=== PATIENT | female | born 1950 | race Caucasian/White ===

== ENCOUNTER → 2018-04-23 | Outpatient (CLI) | payer MEDICARE ==
--- NOTE | 2018-04-29 09:47 | MM ---
Reason for exam: screening (asymptomatic). Last mammogram was performed 1 year ago. History: Patient is postmenopausal and has history of other cancer at age 46. Benign excisional biopsy of the right breast, March 27, 1998. Benign excisional biopsy of the right breast, 1990. Physical Findings: A clinical breast exam by your physician is recommended on an annual basis and results should be correlated with mammographic findings. MG 3D Screening Mammo W/Cad Bilateral CC and MLO view(s) were taken. Prior study comparison: April 16, 2017, bilateral MG 3d screening mammo w/cad. April 15, 2016, bilateral MG 3d screening mammo w/cad. The breast tissue is heterogeneously dense. This may lower the sensitivity of mammography. There are benign appearing round dystrophic calcifications bilaterally. There is no discrete abnormality. ASSESSMENT: Benign, BI-RAD 2 RECOMMENDATION: Routine screening mammogram of both breasts in 1 year.
== END ==
LOC: RADMAMWWP 14:52
PROVIDERS: ATTEND Internal Medicine Geriatric Medicine
DX: Z12.31 Encounter for screening mammogram for malignant neoplasm of breast (principal)
CPT/HCPCS: 77063; 77067

== ENCOUNTER → 2019-06-07 | Outpatient (CLI) | payer MEDICARE ==
--- NOTE | 2019-06-08 11:55 | MM ---
Reason for exam: screening (asymptomatic). Last mammogram was performed 1 year and 1 month ago. History: Patient is postmenopausal and has history of other cancer at age 46. Benign excisional biopsy of the right breast, March 27, 1998. Benign excisional biopsy of the right breast, 1990. Took hormonal contraceptives for 5 years. Physical Findings: A clinical breast exam by your physician is recommended on an annual basis and results should be correlated with mammographic findings. MG 3D Screening Mammo W/Cad Bilateral CC and MLO view(s) were taken. Prior study comparison: April 23, 2018, bilateral MG 3d screening mammo w/cad. April 16, 2017, bilateral MG 3d screening mammo w/cad. There is an increasing group of 4mm right lower inner quadrant calcifications at posterior depth. No suspicious abnormality in the left breast. ASSESSMENT: Incomplete: need additional imaging evaluation, BI-RAD 0 RECOMMENDATION: Special view mammogram of the left breast. [facility] will attempt to contact patient to return for supplemental views.
== END | disposition home or self-care (01) ==
LOC: RADMAMWWP 09:00
PROVIDERS: ATTEND Internal Medicine Geriatric Medicine
DX: Z12.31 Encounter for screening mammogram for malignant neoplasm of breast (principal)
CPT/HCPCS: 77063; 77067

== ENCOUNTER → 2019-06-07 | Outpatient (CLI) | payer MEDICARE ==
--- NOTE | 2019-06-07 17:20 | BD ---
EXAMINATION TYPE: Axial Bone Density DATE OF EXAM: 06/07/2019 COMPARISON: NONE CLINICAL HISTORY: 69-year-old female age-related osteoporosis Height: 61 IN Weight: 159 LBS RISK FACTORS HISTORY OF: Active: YES Postmenopausal woman: AGE 52 Take estrogen and/or progesterone medications: NOT NOW How lon YEARS CONTROL MEDICATIONS: Additional Medications: CALCIUM, VIT D, PRILOSEC, SIMVASTATIN, STATIN, BIOTIN, EXAM MEASUREMENTS: Bone mineral densitometry was performed using the Vendscreen System. Bone mineral density as measured about the Lumbar spine is: ----- L1-L4(G/cm2): 1.171 T Score Values are as follows: ----- L2: -1.0 ----- L3: 0.3 ----- L4: 0.6 ----- L1-L4: -0.1 Bone mineral density has: BASELINE Bone mineral density about the R hip (g/cm2): 0.902 Bone mineral density about the L hip (g/cm2): 0.873 T Score values are as follows: -----R Neck: -1.0 -----L Neck: -1.2 -----R Total: -0.6 -----L Total: -0.2 Bone mineral density BASELINE IMPRESSION: Osteopenia (T Score between -2.5 and -1). There is slightly increased risk of fracture and the patient may be considered for treatment. Re-Screen 2-5 years. NOTE: T-SCORE=SD OF THE YOUNG ADULT MEAN.
== END | disposition home or self-care (01) ==
LOC: RADBDWWP 09:03
PROVIDERS: ATTEND Internal Medicine Geriatric Medicine
DX: M85.80 Other specified disorders of bone density and structure, unspecified site (principal); Z78.0 Asymptomatic menopausal state
CPT/HCPCS: 77080

== ENCOUNTER → 2019-06-10 | Outpatient (CLI) | payer MEDICARE ==
--- NOTE | 2019-06-10 12:32 | MM ---
Reason for exam: additional evaluation requested from abnormal screening. Last mammogram was performed less than 1 month ago. History: Patient is postmenopausal and has history of other cancer at age 46. Benign excisional biopsy of the right breast, March 27, 1998. Benign excisional biopsy of the right breast, 1990. Took hormonal contraceptives for 5 years. Physical Findings: Nurse did not find any significant physical abnormalities on exam. MG 3D Work Up W/Cad RT CC with magnification, LM with magnification, and LM view(s) were taken of the right breast. Prior study comparison: June 07, 2019, bilateral MG 3d screening mammo w/cad. April 23, 2018, bilateral MG 3d screening mammo w/cad. Finding: There are coarse, grouped/clustered calcifications in the right breast. New finding since April 23, 2018. These results were verbally communicated with the patient and result sheet given to the patient on 06/10/19. ASSESSMENT: Suspicious, BI-RAD 4 RECOMMENDATION: Stereotactic core biopsy of the right breast. Called Dr. Tan's office with mammographic findings and has scheduled an appointment for the patient for 06/22/19 at 1:[address] Kwok. Biopsy scheduled for 06/16/19 at 2:20. PRELIMINARY REPORT CALLED AND FAXED TO DR. KWOK ON 06/10/19.
== END | disposition home or self-care (01) ==
LOC: RADMAMWWP 07:22
PROVIDERS: ATTEND Internal Medicine Geriatric Medicine
DX: R92.8 Other abnormal and inconclusive findings on diagnostic imaging of breast (principal)
CPT/HCPCS: 77065; G0279; 77061

== ENCOUNTER → 2019-06-16 | Day surgery (SDC) | payer MEDICARE ==
[2019-06-16 13:37] VITALS: BP 168/90; PULSE 82; RESP 18; TEMP 97.7
--- NOTE | 2019-06-16 15:43 | MM ---
EXAMINATION TYPE: MG stereo VAD BX RT DATE OF EXAM: 06/16/2019 COMPARISON: Diagnostic right mammogram dated 06/10/2019 CLINICAL HISTORY: Abnormal mammogram. 4 mm group of indeterminate right lower inner quadrant calcifications for which stereotactic guided biopsy was recommended. TECHNIQUE: Stereotactic guided core biopsy of right breast. FINDINGS: The procedure of stereotactic guided core biopsy was explained to the patient. Benefits, alternatives, and risks were discussed. An informed consent was then obtained. Preprocedural timeout was performed. The shortness pathway for biopsy was chosen. Shortness pathway was CC from below approach. Preprocedural localization images were obtained and a 4 mm group of calcifications in the right lower inner quadrant was demonstrated. Coordinates were calculated. Subsequently 10 cc of lidocaine without epinephrine was utilized to anesthetize the skin and deeper subcutaneous soft tissues. The needle was advanced to the appropriate depth. Prefire images were obtained ensuring appropriate location. Postfire injection of 10 cc of lidocaine with epinephrine was utilized to anesthetize the site of biopsy. A vacuum assisted biopsy gun was used to obtain 9 core samples. The patient tolerated the procedure well without any immediate complication. The patient was kept in the radiology department for short stay after the procedure and then discharged home in stable condition. Targeted calcifications are identified in specimen mammogram. Post biopsy mammogram shows the biopsy marker to appear in satisfactory position relative to the targeted area of concern on the preprocedure images without migration. IMPRESSION: SUCCESSFUL, UNCOMPLICATED STEREOTACTIC GUIDED CORE BIOPSY OF A NEW INTERMEDIATE SUSPICION A 4 MM GROUP OF CALCULATIONS WITHIN THE LOWER INNER QUADRANT OF THE RIGHT BREAST, FULL PATHOLOGY RESULTS TO FOLLOW. Pathology Results: Benign RIGHT BREAST, NEEDLE CORE BIOPSIES: Proliferative breast lesions without atypia including microscopic intraductal papilloma, usual duct hyperplasia and fibroadenomatoid hyperplasia. Recommendation Follow up mammogram of the right breast in 6 months. MTDD
== END ==
LOC: RADMAMWWP 13:18
PROVIDERS: ATTEND Student in an Organized Health Care Education/Training Program
DX: D24.1 Benign neoplasm of right breast (principal)
CPT/HCPCS: 88305; 19081; J2001

== ENCOUNTER → 2019-10-04 | Outpatient (CLI) | payer MEDICARE | END | disposition home or self-care (01) | LOC: LABWHC1 10:11 | PROVIDERS: ATTEND Student in an Organized Health Care Education/Training Program | DX: Z11.59 Encounter for screening for other viral diseases (principal) ==

== ENCOUNTER 2019-10-06 09:50 | Day surgery (SDC) | payer MEDICARE ==
[2019-10-05 10:52] VITALS: BMI 28.3
[~2019-10-06 09:50] MED LIST: ALPRAZolam 0.25 MG TAB PO PRN; DEXAMETHASONE SOD PHOSPHATE 10 MG/ML 1 ML VIAL IV ONE; HYDROmorphone 0.5 MG/0.5 ML SYRINGE IVP PRN; LACTATED RINGERS 1,000 ML IV SCH; ONDANSETRON 4 MG/2 ML VIAL IVP ONE; Pre Op ABX Message 1 EACH MISC MISCELLANE ONE
[2019-10-06 10:24] VITALS: RESP 16
[2019-10-06] MEDS ORDERED: LIDOCAINE 1% (10MG/ML) FOR IV START INTRADERMA ONE (10:48)
[2019-10-06 11:16] VITALS: TEMP 97.9
[2019-10-06] MEDS ORDERED: LIDOCAINE 1% INJ 10MG/ML (20 ML MDV) SQ ONE (11:24)
[2019-10-06] MEDS ORDERED: PROPOFOL 10 MG/ML 20 ML VIAL IV ONE (12:15)
[2019-10-06] MEDS ORDERED: KETOROLAC 30 MG/ML 1 ML VIAL ONE (12:15)
[2019-10-06] MEDS ORDERED: HYDROmorphone (PF) 1 MG/ML ONE (12:15)
[2019-10-06] MEDS ORDERED: LIDOCAINE 1% INJ 10MG/ML (20 ML MDV) ONE (12:15)
[2019-10-06] MEDS ORDERED: MIDAZOLAM 2 MG/2 ML VIAL ONE (12:15)
[2019-10-06] MEDS ORDERED: fentaNYL (PF) 50 MCG/ML 2 ML AMP ONE (12:15)
[2019-10-06] MEDS ORDERED: LIDOCAINE 1%-EPI 1:100,000 20 ML VIAL SQ ONE ×2 (12:19)
[2019-10-06] MEDS ORDERED: ceFAZolin 1,000 MG VIAL IVPB ONE (12:34)
--- NOTE | 2019-10-06 13:31 | MM ---
EXAMINATION TYPE: MG pre op needle loc RT, MG surgical specimen RT DATE OF EXAM: 10/06/2019 COMPARISON: Stereotactic guided biopsy of the right breast dated 06/16/2019 CLINICAL HISTORY: Mammographic guided needle localization request for intraductal papilloma after stereotactic guided biopsy. TECHNIQUE: Needle localization with wire placement and surgical excision of area of concern in the right breast. FINDINGS: The procedure of needle localization with wire placement and than surgical excision was explained to the patient. Benefits, alternatives, and risks were discussed. An informed consent was then obtained. Preprocedural timeout was performed. The shortest pathway for procedure was chosen. Shortest pathway was medial to lateral approach. The overlying skin was prepped and draped in usual sterile fashion. 10 cc of 1% lidocaine was used as anesthetic into the skin and subcutaneous tissue up to the level of area of concern. A 7 cm needle was used. It was placed via a medial to lateral approach under mammographic guidance. Subsequent 90 degrees mammogram show the needle to be in satisfactory position relative to the targeted area. At this point, wire was placed and the needle was withdrawn. The wire was fixed to patient's skin. Images were marked for surgeon. The patient tolerated the procedure well without any immediate complication. The patient was kept in the radiology department for short stay after the procedure and then taken to surgery for surgical excision. Targeted biopsy marker and wire are identified in specimen mammogram. Findings relayed to the OR by the informatics application analyst at 1313 p.m. on 10/06/2019. The patient was kept in hospital for short stay after the procedure and then discharged home in stable condition. IMPRESSION: Successful, uncomplicated needle localization with wire placement and surgical excision of a targeted biopsy marker denoting the biopsy-proven intraductal papilloma in the right breast, full pathology results to follow. Pathology Results: Benign RIGHT BREAST, NEEDLE LOCALIZATION EXCISION: Benign breast with fibrocystic changes including moderate usual type ductal hyperplasia, sclerosing adenosis, fibrosis, and cysts. Previous biopsy site. Recommendation Surgical consult of the right breast. Continued follow up microscopic incidental papilloma likely entirely excised on biopsy. [facility]
--- NOTE | 2019-10-06 14:10 | P.OP ---
Date of Procedure: 10/06/19 Preoperative Diagnosis: Intraductal papiloma Postoperative Diagnosis: same Procedure(s) Performed: Needle localized excisional biopsy right breast Anesthesia: NAE Surgeon: Tio Isbell Estimated Blood Loss (ml): 10 Condition: stable Description of Procedure: Patient is brought operative suite remained in the supine position when general endotracheal anesthesia per Department of anesthesia she was prepped and draped usual sterile fashion. She previously had had needle localization performed by the radiology department. An incision was made directly over the wire in the right breast. 3 cm long. This was carried down and skin flaps were formed. The entire wire and clip were excised and sent to mammography. This is done with Bovie electrocautery and hemostasis was achieved. The image confirmed that clip and wire were intact and in the specimen with adequate margins. The wound was irrigated and hemostasis was once again achieved all sponge and needle counts were correct the wound was then closed with 3-0 subdermal Vicryl followed by 4-0 running subcuticular Monocryl suture. Steri-Strips were applied sterile dressing was applied patient tolerated procedure well no apparent complications Plan - Discharge Summary Discharge Rx Participant: No New Discharge Prescriptions: No Action Simvastatin [Zocor] 40 mg PO HS Ezetimibe [Zetia] 10 mg PO DAILY Omeprazole [PriLOSEC] 10 mg PO DAILY Calcium Carbonate [Calcium] 600 mg PO DAILY Multivitamins, Thera [Multivitamin (formulary)] 1 tab PO DAILY Biotin 10,000 mcg PO DAILY Discharge Medication List Ezetimibe [Zetia] 10 mg PO DAILY 09/01/13 [History] Simvastatin [Zocor] 40 mg PO HS 09/01/13 [History] Calcium Carbonate [Calcium] 600 mg PO DAILY 06/14/19 [History] Multivitamins, Thera [Multivitamin (formulary)] 1 tab PO DAILY 06/14/19 [History] Omeprazole [PriLOSEC] 10 mg PO DAILY 06/14/19 [History] Biotin 10,000 mcg PO DAILY 06/16/19 [History]
[2019-10-06 15:26] VITALS: BP 147/61; PULSE 57
== END 2019-10-06 15:45 | disposition home or self-care (01) ==
LOC: OR 09:50
PROVIDERS: ATTEND Student in an Organized Health Care Education/Training Program
DX: N60.21 Fibroadenosis of right breast (principal); N60.31 Fibrosclerosis of right breast; E78.5 Hyperlipidemia, unspecified; K21.9 Gastro-esophageal reflux disease without esophagitis; Z79.899 Other long term (current) drug therapy; Z98.890 Other specified postprocedural states; Z85.828 Personal history of other malignant neoplasm of skin; Z78.0 Asymptomatic menopausal state; Z80.7 Family history of other malignant neoplasms of lymphoid, hematopoietic and related tissues; Z82.5 Family history of asthma and other chronic lower respiratory diseases; Z84.1 Family history of disorders of kidney and ureter
CPT/HCPCS: 88307; 76098; 19281; 19125; J2250; J1100; J2405; J0690; J2001; J3010; J1885; J1170 ×2; J2704

== ENCOUNTER → 2020-07-04 | Outpatient (CLI) | payer MEDICARE ==
[2020-07-04 13:52] LABS: ALT 30 U/L (4-34); AST 26 U/L (14-36); African American GFR (CKD) >90 (>60 ml/min/1.73 sqM); Albumin 4.1 g/dL (3.5-5.0); Alkaline Phosphatase 51 U/L (38-126); Anion Gap 7 mmol/L; Blood Urea Nitrogen 20 mg/dL (7-17); Calcium 9.6 mg/dL (8.4-10.2); Carbon Dioxide 29 mmol/L (22-30); Chloride 102 mmol/L (98-107); Creatine Kinase 48 U/L (30-135); Glucose 104 mg/dL (74-99); Non-African American GFR(CKD) >90 (>60 ml/min/1.73 sqM); Potassium 4.3 mmol/L (3.5-5.1); Sodium 138 mmol/L (137-145); Total Bilirubin 0.4 mg/dL (0.2-1.3); Total Protein 6.6 g/dL (6.3-8.2)
[2020-07-04 14:03] LABS: T4, Free (Free Thyroxine) 0.88 ng/dL (0.78-2.19)
[2020-07-04 15:17] LABS: Cholesterol 222 mg/dL (<200); HDL Cholesterol 82 mg/dL (40-60); LDL Cholesterol,Calculated 131 mg/dL (0-99); Triglycerides 46 mg/dL (<150)
[2020-07-05 00:32] LABS: Hemoglobin A1C 5.7 % (4.0-6.0)
--- NOTE | 2020-07-06 11:53 | MM ---
Reason for exam: screening (asymptomatic). Last mammogram was performed 1 year and 1 month ago. History: Patient is postmenopausal and has history of other cancer at age 46. Benign MG pre op needle loc RT of the right breast, October 06, 2019. Benign MG stereo VAD BX RT of the right breast, June 16, 2019. Benign excisional biopsy of the right breast, March 27, 1998. Benign excisional biopsy of the right breast, 1990. Took hormonal contraceptives for 5 years. Physical Findings: A clinical breast exam by your physician is recommended on an annual basis and results should be correlated with mammographic findings. MG 3D Screening Mammo W/Cad Bilateral CC and MLO view(s) were taken. Prior study comparison: June 10, 2019, right breast MG 3d work up w/cad RT. June 07, 2019, bilateral MG 3d screening mammo w/cad. The breast tissue is heterogeneously dense. This may lower the sensitivity of mammography. Stable anterior left MLO asymmetric density. New large asymmetric density posterior inferior right MLO may represent a large fold or post surgical change. ASSESSMENT: Incomplete: need additional imaging evaluation, BI-RAD 0 RECOMMENDATION: Special view mammogram of the right breast. (3D) If lesion persists on supplemental views, image directed ultrasound is recommended. [facility] will attempt to contact patient to return for supplemental views and ultrasound if indicated.
== END ==
LOC: RADMAMWWP 09:08
PROVIDERS: ATTEND Internal Medicine Geriatric Medicine
DX: Z12.31 Encounter for screening mammogram for malignant neoplasm of breast (principal); Z78.0 Asymptomatic menopausal state
CPT/HCPCS: 77063; 77067; 80053; 80061; 82550; 83036; 84439; 84443

== ENCOUNTER → 2020-07-11 | Outpatient (CLI) | payer MEDICARE ==
--- NOTE | 2020-07-11 08:22 | MM ---
Reason for exam: additional evaluation requested from abnormal screening. Last mammogram was performed less than 1 month ago. History: Patient is postmenopausal and has history of other cancer at age 46. Benign MG pre op needle loc RT of the right breast, October 06, 2019. Benign MG stereo VAD BX RT of the right breast, June 16, 2019. Benign excisional biopsy of the right breast, March 27, 1998. Benign excisional biopsy of the right breast, 1990. Took hormonal contraceptives for 5 years. Physical Findings: Nurse did not find any significant physical abnormalities on exam. MG 3D Work Up W/Cad RT CC and MLO view(s) were taken of the right breast. Prior study comparison: July 04, 2020, bilateral MG 3d screening mammo w/cad. June 10, 2019, right breast MG 3d work up w/cad RT. The breast tissue is heterogeneously dense. This may lower the sensitivity of mammography. Elongated asymmetric density inferior posterior becomes less defined on additional views and underlies the patient's scar. 6 month follow up recommended. These results were verbally communicated with the patient and result sheet given to the patient on 07/11/20. ASSESSMENT: Probably benign, BI-RAD 3 RECOMMENDATION: Follow-up diagnostic mammogram of the right breast in 6 months.
== END | disposition home or self-care (01) ==
LOC: RADMAMWWP 06:56
PROVIDERS: ATTEND Internal Medicine Geriatric Medicine
DX: R92.8 Other abnormal and inconclusive findings on diagnostic imaging of breast (principal)
CPT/HCPCS: 77065; G0279; 77061

== ENCOUNTER → 2021-02-18 | Outpatient (CLI) | payer MEDICARE ==
--- NOTE | 2021-02-19 07:49 | MM ---
Reason for exam: follow-up at short interval from prior study. Last mammogram was performed 7 months ago. History: Patient is postmenopausal and has history of other cancer at age 46. Benign MG pre op needle loc RT of the right breast, October 06, 2019. Benign MG stereo VAD BX RT of the right breast, June 16, 2019. Benign excisional biopsy of the right breast, March 27, 1998. Benign excisional biopsy of the right breast, 1990. Took hormonal contraceptives for 5 years. Physical Findings: Nurse did not find any significant physical abnormalities on exam. MG 3D Diag Mammo Wo Cad RT CC and MLO view(s) were taken of the right breast. Prior study comparison: July 11, 2020, right breast MG 3d work up w/cad RT. July 04, 2020, bilateral MG 3d screening mammo w/cad. June 10, 2019, right breast MG 3d work up w/cad RT. June 07, 2019, bilateral MG 3d screening mammo w/cad. April 23, 2018, bilateral MG 3d screening mammo w/cad. There are scattered fibroglandular densities. Post operative change right breast. These results were verbally communicated with the patient and result sheet given to the patient on 02/18/21. ASSESSMENT: Benign, BI-RAD 2 RECOMMENDATION: Return to routine screening mammogram schedule for both breasts. Back on schedule.
== END | disposition home or self-care (01) ==
LOC: RADMAMWWP 14:38
PROVIDERS: ATTEND Internal Medicine Geriatric Medicine
DX: R92.8 Other abnormal and inconclusive findings on diagnostic imaging of breast (principal)
CPT/HCPCS: 77065; G0279; 77061

== ENCOUNTER → 2022-02-19 | Outpatient (CLI) | payer MEDICARE ==
--- NOTE | 2022-02-19 08:46 | MM ---
Reason for Exam: Clinical finding. Last mammogram was performed 1 year(s) and 7 month(s) ago. Indicated Problems: Pain : not having pain now. Patient History: Menarche at age 12. First Full-Term at age 27. Postmenopausal. Patient has history of breast feeding. Patient used Hormonal Contraceptives for 5 years. 1990, Benign Excisional Biopsy on the right side. 10/06/2019, Benign Core Biopsy on the right side. 06/16/2019, Benign Core Biopsy on the right side. 03/27/1998, Benign Excisional Biopsy on the right side. Risk Values: Crystal 5 year model risk: 2.9%. NCI Lifetime model risk: 7.9%. Prior Study Comparison: 10/23/1994 Screening Mammogram, Unknown. 04/23/2018 Bilateral Screening Mammogram, [facility]. 06/07/2019 Bilateral Screening Mammogram, [facility]. 06/10/2019 Right Diagnostic Mammogram, [facility]. 07/04/2020 Bilateral Screening Mammogram, [facility]. 07/11/2020 Right Diagnostic Mammogram, [facility]. 02/18/2021 Right Diagnostic Mammogram, [facility]. Tissue Density: The breast tissue is heterogeneously dense. This may lower the sensitivity of mammography. Findings: Analyzed By CAD. No worrisome cluster microcalcifications or new suspicious mass within either breast. Benign round calcifications within both breasts. No significant change from prior examinations. Overall Assessment: Benign, BI-RAD 2 Management: Screening Mammogram of both breasts in 1 year. A clinical breast exam by your physician is recommended on an annual basis and results should be correlated with mammographic findings. This exam should not preclude additional follow-up of suspicious palpable abnormalities. Results were given to the patient verbally at the time of exam. Electronically signed and approved by: Shree Henry D.O.
--- NOTE | 2022-02-19 08:46 | MM ---
Reason for Exam: Clinical finding. Last mammogram was performed 1 year(s) and 7 month(s) ago. Indicated Problems: Pain : not having pain now. Patient History: Menarche at age 12. First Full-Term at age 27. Postmenopausal. Patient has history of breast feeding. Patient used Hormonal Contraceptives for 5 years. 1990, Benign Excisional Biopsy on the right side. 10/06/2019, Benign Core Biopsy on the right side. 06/16/2019, Benign Core Biopsy on the right side. 03/27/1998, Benign Excisional Biopsy on the right side. Risk Values: Crystal 5 year model risk: 2.9%. NCI Lifetime model risk: 7.9%. Prior Study Comparison: 10/23/1994 Screening Mammogram, Unknown. 04/23/2018 Bilateral Screening Mammogram, [facility]. 06/07/2019 Bilateral Screening Mammogram, [facility]. 06/10/2019 Right Diagnostic Mammogram, [facility]. 07/04/2020 Bilateral Screening Mammogram, [facility]. 07/11/2020 Right Diagnostic Mammogram, [facility]. 02/18/2021 Right Diagnostic Mammogram, [facility]. Tissue Density: The breast tissue is heterogeneously dense. This may lower the sensitivity of mammography. Findings: Analyzed By CAD. No worrisome cluster microcalcifications or new suspicious mass within either breast. Benign round calcifications within both breasts. No significant change from prior examinations. Overall Assessment: Benign, BI-RAD 2 Management: Screening Mammogram of both breasts in 1 year. A clinical breast exam by your physician is recommended on an annual basis and results should be correlated with mammographic findings. This exam should not preclude additional follow-up of suspicious palpable abnormalities. Results were given to the patient verbally at the time of exam. Electronically signed and approved by: Shree Henry D.O.
== END | disposition home or self-care (01) ==
LOC: RADMAMWWP 08:02
PROVIDERS: ATTEND Internal Medicine Geriatric Medicine
DX: N64.4 Mastodynia (principal)
CPT/HCPCS: 77066; G0279; 77062

== ENCOUNTER → 2022-09-26 | Day surgery (SDC) | payer MEDICARE ==
[2022-09-24 15:59] VITALS: BMI 28.3
[~2022-09-26] MED LIST changes: -ALPRAZolam 0.25 MG TAB PO PRN; -DEXAMETHASONE SOD PHOSPHATE 10 MG/ML 1 ML VIAL IV ONE; -HYDROmorphone 0.5 MG/0.5 ML SYRINGE IVP PRN; -ONDANSETRON 4 MG/2 ML VIAL IVP ONE; +PROPOFOL 10 MG/ML 20 ML VIAL IV ONE; -Pre Op ABX Message 1 EACH MISC MISCELLANE ONE
[2022-09-26 11:07] VITALS: RESP 16; TEMP 98.2
--- NOTE | 2022-09-26 12:08 | P.PCN ---
Date of Procedure: 09/26/22 Procedure(s) Performed: BRIEF HISTORY: Patient is a 72-year-old pleasant white female scheduled for an elective colonoscopy as a part of screening for colon cancer. PROCEDURE PERFORMED: Colonoscopy. PREOPERATIVE DIAGNOSIS: Screening for colon cancer. IV sedation per Anesthesia. PROCEDURE: After informed consent was obtained, the patient, was brought into the endoscopy unit. IV sedation was administered by Anesthesia under continuous monitoring. Digital rectal examination was normal. Initially the Olympus CF-160 flexible video colonoscope was then inserted in the rectum, gradually advanced into the cecum without any difficulty. Careful examination was performed as the scope was gradually being withdrawn. Ileocecal valve and the appendiceal orifice were visualized and appeared normal. Prep was excellent. Mucosa of the cecum, ascending colon, transverse colon, descending colon, sigmoid colon, and rectum appeared normal. Scattered sigmoid diverticulosis Retroflexion was performed in the rectum and no lesions were seen. The patient tolerated the procedure well. IMPRESSION: Normal-appearing colon from rectum to cecum with no evidence of colorectal neoplasia Scattered sigmoid diverticulosis RECOMMENDATIONS: Findings of this examination were discussed with the patient as well as a family. She was advised to have a repeat screening colonoscopy in 10 years.
[2022-09-26 12:37] VITALS: BP 132/83; PULSE 82
== END ==
LOC: ORWHC2ENDO 10:47
PROVIDERS: ATTEND Internal Medicine Gastroenterology
DX: Z12.11 Encounter for screening for malignant neoplasm of colon (principal); K57.30 Diverticulosis of large intestine without perforation or abscess without bleeding; E78.5 Hyperlipidemia, unspecified; K21.9 Gastro-esophageal reflux disease without esophagitis; Z79.899 Other long term (current) drug therapy; Z85.828 Personal history of other malignant neoplasm of skin; Z98.890 Other specified postprocedural states
CPT/HCPCS: J2704; G0121

== ENCOUNTER → 2023-03-12 | Outpatient (CLI) | payer MEDICARE ==
--- NOTE | 2023-03-12 13:08 | MM ---
Reason for Exam: Screening (asymptomatic). Last mammogram was performed 1 year(s) and 1 month(s) ago. Patient History: Menarche at age 12. First Full-Term at age 27. Postmenopausal. Patient has history of breast feeding. Patient used Hormonal Contraceptives for 5 years. 1990, Benign Excisional Biopsy on the right side. 10/06/2019, Benign Core Biopsy on the right side. 06/16/2019, Benign Core Biopsy on the right side. 03/27/1998, Benign Excisional Biopsy on the right side. Risk Values: Crystal 5 year model risk: 2.9%. NCI Lifetime model risk: 7.5%. Prior Study Comparison: 07/11/2020 Right Diagnostic Mammogram, [facility]. 02/18/2021 Right Diagnostic Mammogram, [facility]. 02/19/2022 Bilateral MG 3D diag mammo w/cad [facility]ICO[facility], [facility]. Tissue Density: The breast tissue is heterogeneously dense. This may lower the sensitivity of mammography. Findings: Analyzed By CAD. There is no suspicious group of microcalcifications or new suspicious mass. Overall Assessment: Negative, BI-RAD 1 Management: Screening Mammogram of both breasts in [address] [facility] will attempt to contact patient to return for supplemental views and ultrasound if indicated. Patient should continue monthly self-breast exams. A clinical breast exam by your physician is recommended on an annual basis. This exam should not preclude additional follow-up of suspicious palpable abnormalities. Note on Crystal scores and lifetime risk: 1. A Crystal score greater than 3% is considered moderate risk. If this is the case, consider specialist referral to assess eligibility for a risk reducing agent. 2. If overall lifetime risk for the development of breast cancer is 20% or higher, the patient may qualify for future screening with alternating mammogram and breast MRI. Electronically signed and approved by: Talon Giles DO
== END | disposition home or self-care (01) ==
LOC: RADMAMWWP 09:56
PROVIDERS: ATTEND Internal Medicine Geriatric Medicine
DX: Z12.31 Encounter for screening mammogram for malignant neoplasm of breast (principal); Z78.0 Asymptomatic menopausal state
CPT/HCPCS: 77063; 77067

== ENCOUNTER 2023-09-11 14:04 | Emergency (ER) | payer MEDICARE ==
--- NOTE | 2023-09-11 14:57 | ED ---
GI Bleed HPI - General Source: patient, family, RN notes reviewed Mode of arrival: ambulatory Limitations: no limitations <Stalin Munguia - Last Filed: 09/11/23 14:55> - General Source: patient, family, RN notes reviewed, old records reviewed <Jorje Becerra - Last Filed: 09/11/23 18:42> - General Chief complaint: GI Bleed Stated complaint: Vomiting Time Seen by Provider: 09/11/23 14:23 - History of Present Illness Initial comments: Quick [id number] female presents emergency department chief complaint of vomiting, abdominal pain. Patient states that she woke up not feeling well states that she had vomiting which was black-colored in nature states it is very grainy. She denies any blood thinners denies any history of gastric ulcers or any prior GI bleeds. Denies chest pain (JoanalisiaStalin Kira) Is a 73-year-old female who presents emergency department for coffee-ground emesis. Has had 3 episodes of coffee-ground emesis today. Does have a history of 10 to 20 years of drinking 2 to 4 glasses of wine per day. Never has had an EGD in the past. Has had a colonoscopy and that was unremarkable. Other medical problems include acid reflux. Has had intermittent epigastric abdominal discomfort today as well but currently no pain. Last episode of coffee-ground emesis was in the waiting room. Is not on blood thinners. Is not on aspirin. Denies any fevers, chills, cough. Denies any chest pain or shortness of breath. Presents for further evaluation at this time. Chary seen as a quick note. Prior history of GI bleeding. (Jorje Becerra) - Related Data Home Medications Medication Instructions Recorded Confirmed Ezetimibe [Zetia] 10 mg PO HS 09/01/13 09/24/22 Calcium Carbonate [Calcium] 600 mg PO DAILY 06/14/19 09/24/22 Multivitamins, Thera [Multivitamin 1 tab PO DAILY 06/14/19 09/24/22 (formulary)] Omeprazole [PriLOSEC] 10 mg PO DAILY 06/14/19 09/24/22 Biotin 10,000 mcg PO DAILY 06/16/19 09/24/22 Rosuvastatin [Crestor] 10 mg PO HS 09/24/22 09/24/22 Allergies Allergy/AdvReac Type Severity Reaction Status Date / Time No Known Allergies Allergy Verified 09/26/22 11:01 Review of Systems ROS Other: All systems not noted in ROS Statement are negative. <Stalin Munguia - Last Filed: 09/11/23 14:55> ROS Other: All systems not noted in ROS Statement are negative. <Jorje Becerra - Last Filed: 09/11/23 18:42> ROS Statement: Those systems with pertinent positive or pertinent negative responses have been documented in the HPI. Review of Systems: CONST: Denies fever EYES: Denies blurry vision ENT: Denies nasal congestion C/V: Denies Chest pain RESP: Denies shortness of breath GI: Endorses nausea and vomiting with coffee-ground emesis : Denies dysuria SKIN: Denies rash. MSK: Denies joint pain. NEURO: Denies headache (Jorje Becerra) Past Medical History Past Medical History: Cancer, GERD/Reflux, Hyperlipidemia Additional Past Medical History / Comment(s): SKIN CANCER History of Any Multi-Drug Resistant Organisms: None Reported Past Surgical History: Breast Surgery, Orthopedic Surgery Additional Past Surgical History / Comment(s): bunionectomy bilateral great toes with joint replacement-2007. bilateral knee surgery-2016. right breast excsional [id number]. RT BREAST NEEDLE LOC. COLONOSCOPY Past Anesthesia/Blood Transfusion Reactions: Motion Sickness Past Psychological History: No Psychological Hx Reported Smoking Status: Never smoker Past Alcohol Use History: None Reported Past Drug Use History: None Reported - Past Family History Sister(s) Family Medical History: Cancer <Stalin Munguia - Last Filed: 09/11/23 14:55> General Exam Limitations: no limitations General appearance: alert, in no apparent distress Head exam: Present: atraumatic, normocephalic, normal inspection <Stalin Munguia - Last Filed: 09/11/23 14:55> <Jorje Becerra - Last Filed: 09/11/23 18:42> - General Exam Comments Initial Comments: Visual Physical Exam Vital signs reviewed General: Well-appearing, nontoxic, no acute distress. Head: Normocephalic, atraumatic Eyes: PERRLA, EOMI ENT: Airway patent Chest: Nonlabored breathing Skin: No visual rash, normal skin tone Neuro: Alert and oriented 3 Musculoskeletal: No gross abnormalities (Stalin Munguia) General: Appears in no acute distress. HEAD: Normal with no signs of head trauma. EYES: PERRLA, EOMI, conjunctiva normal, no discharge. ENT: Hearing grossly intact, normal oropharynx. RESPIRATORY: Clear breath sounds bilaterally. No wheezes, rales, or rhonchi. C/V: Regular rate and rhythm. S1 and S2 auscultated, no edema, peripheral pulses 2+ and intact throughout ABD: Mild epigastric abdominal discomfort on palpation. No guarding. No rebound tenderness. No peritoneal signs. EXT: Normal range of motion, no obvious deformity SKIN: No rashes or lesions observed on exposed skin. NEURO: Alert and oriented x 4. (Jorje Becerra) Course Vital Signs 09/11/23 09/11/23 14:39 14:43 Temperature 97.5 F L Pulse Rate 84 81 Respiratory 18 18 Rate Blood Pressure 162/88 162/96 O2 Sat by Pulse 98 99 Oximetry Medical Decision Making <Stalin Munguia - Last Filed: 09/11/23 14:55> - Lab Data Result diagrams: 09/11/23 15:46 09/11/23 15:46 - EKG Data -: EKG Interpreted by Me <Jorje Becerra - Last Filed: 09/11/23 18:42> - Medical Decision Making I completed the quick note portion of this chart signed Stalin Munguia PA-C (Stalin Munguia) Was pt. sent in by a medical professional or institution ([facility], [facility], urgent care, hospital, or residential...) When possible be specific @ -No Did you speak to anyone other than the patient for history (EMS, parent, family, police, friend...)? What history was obtained from this source @ -No Did you review nursing and triage notes (agree or disagree)? Why? @ -I reviewed and agree with nursing and triage notes Were old charts reviewed (outside hosp., previous admission, EMS record, old EKG, old radiological studies, urgent care reports/EKG's, residential records)? Report findings @ -No old charts were reviewed Differential Diagnosis (chest pain, altered mental status, abdominal pain women, abdominal pain men, vaginal bleeding, weakness, fever, dyspnea, syncope, headache, dizziness, GI bleed, back pain, seizure, CVA, palpatations, mental health, musculoskeletal)? @ -Differential GI Bleed: Esophageal varices, aortoenteric fistula, Kathryn-Hannah, gastritis, peptic ulcer disease, diverticulosis, inflammatory bowel disease, hemorrhoids, fissure, colitis, malignancy, Meckels diverticulum, this is not meant to be an all- inclusive list. EKG interpreted by me (3pts min.). @ -As above X-rays interpreted by me (1pt min.). @ -None done CT interpreted by me (1pt min.). @ -CT abdomen pelvis GI bleed protocol revealed no obvious focal bleed. Patient does have gastritis seen on imaging. No other obvious acute process at this time. U/S interpreted by me (1pt. min.). @ -None done What testing was considered but not performed or refused? (CT, X-rays, U/S, labs)? Why? @ -None What meds were considered but not given or refused? Why? @ -None Did you discuss the management of the patient with other professionals (professionals i.e. , PA, [facility], lab, RT, psych nurse, social worker clinical, environmental geologist, teacher, admissions officer, case reviewer)? Give summary @ -Spoke with timber poisoner surgeon, Dr. Ahmadi who recommended transfer to facility with GI services available. Discussed with accepting GI physician Dr. Osborn who accepted the transfer. Accepting ER physician is Dr. Ding at [facility]. Was smoking cessation discussed for >3mins.? @ -No Was critical care preformed (if so, how long)? @ -Yes, 32 minutes Were there social determinants of health that impacted care today? How? (Homelessness, low income, unemployed, alcoholism, drug addiction, transportation, low edu. Level, literacy, decrease access to med. care, alf, rehab)? @ -No Was there de-escalation of care discussed even if they declined (Discuss DNR or withdrawal of care, Hospice)? DNR status @ -No What co-morbidities impacted this encounter? (DM, HTN, Smoking, COPD, CAD, Cancer, CVA, ARF, Chemo, Hep., AIDS, mental health diagnosis, sleep apnea, morbid obesity)? @ -Chronic daily alcohol abuse, 2 to 4 glasses of wine per day for 10 to 20 years. Was patient admitted / discharged? Hospital course, mention meds given and route, prescriptions, significant lab abnormalities, going to OR and other pertinent info. @ -Based on the patient's presentation and physical exam, presents emergency department complaining of 3 episodes of what appears to be upper GI bleeding coffee-ground emesis. Does have a history of chronic alcohol abuse. No prior episodes of GI bleed in the past. No history of EGDs in the past. Is not on blood thinners. We will obtain GI bleed workup. This includes CT angiogram. D ue to the concern for potential for esophageal varices, I would like to start the patient on an octreotide drip and patient will receive 50 mcg IV push and started on 50 mcg an hour. Patient also received a total of 80 mg of Protonix as well as a 1 L fluid bolus and a dose of TXA. Patient was in agreement this plan. Last episode of coffee-ground emesis was shortly prior to me evaluating the patient. EKG shows no signs of acute ischemia. Vital signs are within acceptable limits. Labs remarkable for normal hemoglobin. Coags within normal limits. Lactic acid normal. LFTs normal. Alcohol undetectable at this time. I discussed at length with the patient and she is high risk for the potential for esophageal varices considering her alcohol abuse history. I did recommend transfer at this time for observation as we do not have GI available for a evaluation here. Patient was in agreement this plan.CT reveals no obvious acute GI bleed. Gastritis present. Spoke with timber poisoner surgeon, Dr. Ahmadi who recommended transfer to facility with GI services available. Discussed with accepting GI physician Dr. Osborn who accepted the transfer. Accepting ER physician is Dr. Ding at [facility]. Patient transferred in stable condition. Undiagnosed new problem with uncertain prognosis? @ -No Drug Therapy requiring intensive monitoring for toxicity (Heparin, Nitro, Insulin, Cardizem)? @ -No Were any procedures done? @ -No Diagnosis/symptom? @ -Upper GI bleed, coffee-ground emesis Acute, or Chronic, or Acute on Chronic? @ -Acute Uncomplicated (without systemic symptoms) or Complicated (systemic symptoms)? @ -Complicated Side effects of treatment? @ -No Exacerbation, Progression, or Severe Exacerbation? @ -No Poses a threat to life or bodily function? How? (Chest pain, [place], VA, pneumonia, PE, COPD, DKA, ARF, appy, cholecystitis, CVA, Diverticulitis, Homicidal, Esteves icidal, threat to staff... and all critical care pts) @ -Yes (Jorje Becerra) - Lab Data Lab Results 09/11/23 09/11/23 09/11/23 Range/Units 14:55 15:46 15:46 WBC 11.3 H (3.8-10.6) k/uL RBC 4.86 (3.80-5.40) m/uL Hgb 15.5 (11.4-16.0) gm/dL Hct 47.7 H (34.0-46.0) % MCV 98.2 (80.0-100.0) fL MCH 32.0 (25.0-35.0) pg MCHC 32.6 (31.0-37.0) g/dL RDW 12.8 (11.5-15.5) % Plt Count 234 (150-450) k/uL MPV 8.0 Neutrophils % 94 % Lymphocytes % 2 % Monocytes % 2 % Eosinophils % 1 % Basophils % 0 % Neutrophils # 10.6 H (1.3-7.7) k/uL Lymphocytes # 0.2 L (1.0-4.8) k/uL Monocytes # 0.2 (0-1.0) k/uL Eosinophils # 0.1 (0-0.7) k/uL Basophils # 0.0 (0-0.2) k/uL PT 10.9 (10.0-12.5) sec INR 1.0 (<1.2) APTT 21.2 L (22.0-30.0) sec Sodium (137-145) mmol/L Potassium (3.5-5.1) mmol/L Chloride (98-107) mmol/L Carbon Dioxide (22-30) mmol/L Anion Gap mmol/L BUN (7-17) mg/dL Creatinine (0.52-1.04) mg/dL Est GFR (CKD-EPI)AfAm (>60 ml/min/1.73 sqM) Est GFR (CKD-EPI)NonAf (>60 ml/min/1.73 sqM) Glucose (74-99) mg/dL Plasma Lactic Acid Sebastien 0.9 (0.7-2.0) mmol/L Calcium (8.4-10.2) mg/dL Magnesium (1.6-2.3) mg/dL Total Bilirubin (0.2-1.3) mg/dL AST (14-36) U/L ALT (4-34) U/L Alkaline Phosphatase (38-126) U/L Total Protein (6.3-8.2) g/dL Albumin (3.5-5.0) g/dL Serum Alcohol mg/dL Blood Type Blood Type Recheck Bld Type Recheck Status Antibody Screen Spec Expiration Date 09/11/23 09/11/23 09/11/23 Range/Units 15:46 15:46 16:20 WBC (3.8-10.6) k/uL RBC (3.80-5.40) m/uL Hgb (11.4-16.0) gm/dL Hct (34.0-46.0) % MCV (80.0-100.0) fL MCH (25.0-35.0) pg MCHC (31.0-37.0) g/dL RDW (11.5-15.5) % Plt Count (150-450) k/uL MPV Neutrophils % % Lymphocytes % % Monocytes % % Eosinophils % % Basophils % % Neutrophils # (1.3-7.7) k/uL Lymphocytes # (1.0-4.8) k/uL Monocytes # (0-1.0) k/uL Eosinophils # (0-0.7) k/uL Basophils # (0-0.2) k/uL PT (10.0-12.5) sec INR (<1.2) APTT (22.0-30.0) sec Sodium 141 (137-145) mmol/L Potassium 4.3 (3.5-5.1) mmol/L Chloride 108 H (98-107) mmol/L Carbon Dioxide 23 (22-30) mmol/L Anion Gap 10 mmol/L BUN 29 H (7-17) mg/dL Creatinine 0.56 (0.52-1.04) mg/dL Est GFR (CKD-EPI)AfAm >90 (>60 ml/min/1.73 sqM) Est GFR (CKD-EPI)NonAf >90 (>60 ml/min/1.73 sqM) Glucose 100 H (74-99) mg/dL Plasma Lactic Acid Sebastien (0.7-2.0) mmol/L Calcium 9.7 (8.4-10.2) mg/dL Magnesium 1.8 (1.6-2.3) mg/dL Total Bilirubin 0.8 (0.2-1.3) mg/dL AST 34 (14-36) U/L ALT 44 H (4-34) U/L Alkaline Phosphatase 68 (38-126) U/L Total Protein 8.0 (6.3-8.2) g/dL Albumin 4.9 (3.5-5.0) g/dL Serum Alcohol <10 mg/dL Blood Type A Positive Blood Type Recheck No Previous Record Bld Type Recheck Status CABO Indicated Antibody Screen NEGATIVE Spec Expiration Date 09/14/20232345 - EKG Data EKG Comments: 12-lead Electrocardiogram Interpretation Note EKG was reviewed and interpreted by myself. 12-lead ECG performed at 1554 is interpreted by me as revealing normal sinus rhythm at a rate of 80 beats per minute. Sallis is normal. NJ interval is 135 ms, QRS duration is 93 ms, QTc is 399 ms.. There were no ST or T wave abnormalities to suggest myocardial ischemia or injury. R wave progression across the precordium was satisfactory. By my interpretation this EKG is non-diagnostic for acute ischemia. (Jorje Becerra) Critical Care Time Critical Care Time: Yes Total Critical Care Time: 32 <Jorje Becerra - Last Filed: 09/11/23 18:42> Disposition <Stalin Munguia - Last Filed: 09/11/23 14:55> Time of Disposition: 18:40 - Out of Hospital Transfer - Req. Specs Out of Hospital Transfer - Requested Specifics: Other Emergency Center (Transferred to [facility] for GI evaluation for upper GI bleed. No GI services here.) <Jorje Becerra - Last Filed: 09/11/23 18:42> Clinical Impression: Upper GI bleed, Coffee ground emesis Disposition: OTHER INSTITUTION NOT DEFINED Condition: Stable Referrals: Des Tan MD [Primary Care Provider] - 1-2 days
[2023-09-11 15:09] VITALS: RESP 18; TEMP 97.5
[2023-09-11] MEDS: PANTOPRAZOLE 40 MG/10 ML VIAL IVP STA ×2 (15:54→16:31)
[2023-09-11 16:06] LABS: Basophils % (A) 0 %; Eosinophils # (A) 0.1 k/uL (0-0.7); Eosinophils % (A) 1 %; HCT 47.7 % (34.0-46.0); HGB 15.5 gm/dL (11.4-16.0); Lymphocytes # (A) 0.2 k/uL (1.0-4.8); Lymphocytes % (A) 2 %; MCHC 32.6 g/dL (31.0-37.0); MCV 98.2 fL (80.0-100.0); Monocytes # (A) 0.2 k/uL (0-1.0); Monocytes % (A) 2 %; Neutrophils # (A) 10.6 k/uL (1.3-7.7); Neutrophils % (A) 94 %; Platelet Count 234 k/uL (150-450); RBC 4.86 m/uL (3.80-5.40); RDW 12.8 % (11.5-15.5); WBC 11.3 k/uL (3.8-10.6)
[2023-09-11 16:17] LABS: ALT 44 U/L (4-34); AST 34 U/L (14-36); African American GFR (CKD) >90 (>60 ml/min/1.73 sqM); Albumin 4.9 g/dL (3.5-5.0); Alkaline Phosphatase 68 U/L (38-126); Anion Gap 10 mmol/L; Blood Urea Nitrogen 29 mg/dL (7-17); Calcium 9.7 mg/dL (8.4-10.2); Carbon Dioxide 23 mmol/L (22-30); Chloride 108 mmol/L (98-107); Glucose 100 mg/dL (74-99); Magnesium 1.8 mg/dL (1.6-2.3); Non-African American GFR(CKD) >90 (>60 ml/min/1.73 sqM); Potassium 4.3 mmol/L (3.5-5.1); Sodium 141 mmol/L (137-145); Total Bilirubin 0.8 mg/dL (0.2-1.3)
[2023-09-11 16:25] LABS: Prothrombin Time 10.9 sec (10.0-12.5)
[2023-09-11 16:31] LABS: Partial Thromboplastin Time 21.2 sec (22.0-30.0)
[2023-09-11] MEDS: OCTREOTIDE 100 MCG/ML INJ IVP ONE (16:32)
[2023-09-11] MEDS: TRANEXAMIC 1,000 MG/100ML-NACL 1,000 MG in SALINE 1 100ML.BAG IV STA (16:32)
[2023-09-11] MEDS: SODIUM CHLORIDE 0.9% 1,000 ML IV STA (16:32)
[2023-09-11] MEDS: OCTREOTIDE 500 MCG in SODIUM CHLORIDE 0.9% 250 ML IV ONE (16:37)
--- NOTE | 2023-09-11 18:40 | CT ---
EXAMINATION TYPE: CT angio abdomen pelvis DATE OF EXAM: 09/11/2023 COMPARISON: NONE HISTORY: 73-year-old female blood in stool TECHNIQUE: Contiguous axial scanning of the abdomen and pelvis before and after administration of 100 ml Isovue-370 IV contrast. Delayed images per GI bleed protocol. Coronal/sagittal reconstructions p erformed. CT DLP: 1374.7 mGycm Automated exposure control for dose reduction was used. FINDINGS: Heart is upper limits of normal in size without pericardial effusion. RCA coronary calcific ations are present. Strandy atelectasis at the lower lungs without pleural effusion. Small hiatal hernia. Tiny 5 mm cyst anterior mid liver. No biliary ductal dilatation. No abnormal gallbladder distention. Adrenal glands, kidneys, spleen, and pancreas within normal limits. Moderate atherosclerotic calcifications abdominal aorta without aneurysm. Mild diffuse gastric fold thickening may reflect a mild gastritis. Numerous mid and left-sided mesenteric lymph nodes which are borderline and mildly enlarged measuring up to 1.5 cm. Retained medication tablets within the cecum. Mid to distal sigmoid diverticulosis. No pericolonic in flammatory change. No extravasating contrast identified along the colon. Bladder partially distended. Uterus is anteverted. Ovaries not well delineated from bowel loops. No a bnormal fluid collection in the pelvis or pelvic lymphadenopathy. Bones: Moderate degenerative disc disease L4-L5 and L5-S1. Advanced hypertrophic facet arthropathy mi d to lower lumbar spine with grade 1 anterolisthesis L3-L4 and L4-L5. IMPRESSION: 1. MILD DIFFUSE GASTRIC FOLD THICKENING MAY REFLECT A NONSPECIFIC MILD GASTRITIS. 2. MID TO DISTAL SIGMOID DIVERTICULOSIS. NO EVIDENCE FOR ACUTE DIVERTICULITIS. 3. NUMEROUS MID AND LEFT-SIDED MESENTERIC LYMPH NODES WHICH ARE BORDERLINE AND MILDLY ENLARGED MEASUR ING UP TO 1.5 CM. THESE MAY BE REACTIVE/POST INFLAMMATORY. RECOMMEND THREE-MONTH FOLLOW-UP CT TO EXCL UDE MORE AGGRESSIVE ETIOLOGIES SUCH EARLY LYMPHOMA OR METASTATIC NODES. 4. SMALL HIATAL HERNIA.
[2023-09-11 19:48] VITALS: BP 144/68; PULSE 78
== END 2023-09-11 20:10 | disposition other institution (70) ==
LOC: EC 14:04
DX: K92.2 Gastrointestinal hemorrhage, unspecified (principal); K92.0 Hematemesis
CPT/HCPCS: 36415; 93005; 86900; 86901; 80053; 83605; 83735; 85025; 85610; 85730; 86850; 74174; 99291; 96365; 96366 ×3; 96368; 96375; G0480; J2354 ×2; C9113; Q9967; 80320

== ENCOUNTER → 2023-11-09 | Outpatient (CLI) | payer MEDICARE ==
--- NOTE | 2023-11-15 22:59 | P.PCN ---
Date of Procedure: 11/09/23 Operative Findings: Home sleep study testing Date of service 11/09/2023 Pertinent history 73-year-old male patient who has been diagnosed having obstructive sleep apnea with an AHI of 29. The patient had a home study back in 2021 and subsequently the patient was wearing an oral appliance without any major improvement in the severity of his sleep apnea and follow-up AHI was done and his AHI remains quite elevated at 27. During that time, the patient did not have any clinical improvement and he was still experiencing sleep fragmentation and chronic hypersomnia sleepiness. Based on that, another home sleep study was ordered. Pertinent physical findings Body mass index is 28.5 Technical description The [employer] Ap[employer]Link system was used to complete his home sleep study. This is a type III home sleep study. The total recording duration was 6 hours and 2 minutes. The study started at 11:43 PM ended at 5:45 AM. There was more than 5 hours and 50 minutes of oxygen saturation and flow monitoring Results Respiratory evaluation showed a total of 131 obstructive apneas and 93 obstructive hypopneas and the resulting AHI was 38.4 consistent with severe ALLYSON Oxygenation analysis The patient encountered significant nocturnal oxygen desaturation as the patient spent approximately 7 minutes of sleep time below pulse ox 89%. The minimum pulse ox was 69%, average pulse ox during sleep was 93% Cardiac summary The average heart rate was 61 with a minimum heart rate of 51 and a maximum heart rate of 98 Assessment Obstructive sleep apnea, severe with an AHI of 38.4 Oxygen saturations abdominal pulse ox of 69% Hypertension Hyperlipidemia Obesity Plan Patient has trials on oral appliance in the past and he has failed to improve. Based on the severity of his illness, CPAP therapy will be the most appropriate treatment option for this patient. CPAP therapy will be recommended. Will proceed with CPAP titration if the patient is willing to undertake the treatment.
== END ==
LOC: 3 N SLEEP 11:03
PROVIDERS: ATTEND Internal Medicine Critical Care Medicine
DX: G47.33 Obstructive sleep apnea (adult) (pediatric) (principal); G47.36 Sleep related hypoventilation in conditions classified elsewhere; I10 Essential (primary) hypertension; E78.5 Hyperlipidemia, unspecified; E66.9 Obesity, unspecified; Z68.28 Body mass index [BMI] 28.0-28.9, adult

== ENCOUNTER 2024-01-25 18:37 | Outpatient (CLI) | payer MEDICARE ==
--- NOTE | 2024-02-02 23:40 | P.PCN ---
Date of Procedure: 01/25/24 Operative Findings: CPAP titration report Date of service is 01/25/2024 Pertinent history 73-year-old male patient who has been diagnosed having obstructive sleep apnea with an AHI of 29. The patient had a home study back in 2021 and subsequently the patient was wearing an oral appliance without any major improvement in the severity of his sleep apnea and follow-up AHI was done and his AHI remains quite elevated at 27. During that time, the patient did not have any clinical improvement and he was still experiencing sleep fragmentation and chronic hypersomnia sleepiness. Based on that, another home sleep study was ordered. The patient completed a home sleep study and the patient was found to have severe obstructive sleep apnea with an AHI of 38.4. Based on that, the patient was asked to come in for a CPAP titration study. Pertinent physical findings Body mass index is 28.5, height is 5 feet and 1 inch and weight is 162 pounds Technical description The patient was studied using a standard complex polysomnography protocol that included recording of the Lead II EKG, Central, occipital and frontal EEG, right and left outer canthus EOG, submental EMG, right and left anterior tibialis EMG, respiratory airflow by thermocouple and or pressure/flow transducer, respiratory efforts by abdominal and thoracic PVDF belts, oxygen saturation by cable oximetry. Position by observation synchronized the PSG. Equipment used: [email or web address]. Stepwise CPAP titration was done to eliminate all obstructive respiratory events Results Respiratory evaluation showed that the patient was started on CPAP therapy, initially at a pressure of 5 cm of water and pressure was then brought up to 6 cm of water. There was complete evaluation of the obstructive respiratory events at both level of pressures without any significant obstructive and central sleep apneas and the patient was able to maintain oxygen saturation above 90%. The patient was studied in all sleep stages including REM sleep in all body positions. This was a very successful titration. Oxygenation analysis The patient encountered no significant oxygen desaturation during the titration Sleep continuity summary The patient had a total of 41 arousals with an index of 7.2. Respiratory arousal index was 0.7 Periodic limb movements A total of 7 periodic limb movement activity with arousals with an index of 1.2 Cardiac summary Average heart rate of 59 with a minimum of 56 and a maximum was 64 Cardiac summary The average heart rate was 61 with a minimum heart rate of 51 and a maximum heart rate of 98 Assessment Obstructive sleep apnea, severe with an AHI of 38.4, patient underwent a successful CPAP titration Hypertension Hyperlipidemia Plan Will offer the patient a CPAP unit and this will be set at an APAP mode pressures of 4/7 cm of water with a C-Flex of 3. The patient will be offered a AirFit N20 nasal mask, small size. Optimize sleep hygiene measures. See him back in office in 30 to 90 days to assess clinical response and compliancy. Will continue to follow. The patient is going to [place]. Based on that, I am going to order a CPAP machine soon as possible I am going to check on this patient on a telehealth for subsequent follow-up and compliancy check.
== END 2024-01-26 04:50 | disposition home or self-care (01) ==
LOC: 3 N SLEEP 18:37
PROVIDERS: ATTEND Internal Medicine Critical Care Medicine
CPT/HCPCS: 95811